=== PATIENT | female | born 1985 | race Caucasian/White ===

== ENCOUNTER 2025-08-03 05:34 | Emergency (ER) | payer OTHER ==
[~2025-08-03] VITALS: Ht 167.6 cm; Wt 81.6 kg
--- NOTE | 2025-08-03 06:01 | ERN ---
General Chief Complaint: Anxiety/Panic Attack Stated Complaint: ANXIETY Time Seen by MD: 05:38 History of Present Illness Initial Comments 40F BIB EMS from home for "anxiety." Patient is very talkative, tangential. Poor historian. She says that she feels anxious. No pain. No systemic illness. Patient reports that she has not been sleeping. She is disheveled. Denies SI/HI. Denies auditory or visual hallucinations. She denies hx of bipolar or schizophrenia. She reports occasional drug use and alcohol use. On initial exam, patient appears manic. No signs of trauma or distress. EMS reports stable VS. Allergies: Coded Allergies: epinephrine (Unverified Allergy, Unknown, 08/03/25) Past Medical History Past Medical History: Anxiety, Arthritis, Depression Past Surgical History: None ROS Dictation Difficult to obtain due to patient being a poor historian, tangential in thought the flight of ideas. She denies any pain, fevers, headache, nausea or vomiting. Physical Exam Physical Exam Dictation VITAL SIGNS: Reviewed. GENERAL APPEARANCE: Alert, oriented x3, no acute distress, thin, disheveled HEAD AND FACE: Non-traumatic. EYES: PERRL, pink conjunctivas, eyelid no trauma, anterior chamber clear. EARS: Pinnas intact and no signs of trauma or erythema. Ear canals clear and no discharge. TMs no erythema. NOSE: No discharge, no bleeding. OROPHARYNX: Mouth normal, teeth no caries, tongue pink. Pharynx clear, no erythema. Tonsils no exudates, no abscesses noted. Mucous membrane moist. NECK: Supple, non-tender, no thyromegaly, no masses, no JVD, no bruits. BREAST: Deferred. CHEST: No tenderness, no crepitus, no paradoxical movement, no retractions. LUNGS: Clear, well-ventilated, symmetric, no rales, no wheezing, no rhonchi, no stridor, good breath sounds bilaterally. HEART: Regular rate, regular rhythm, no murmur, no gallops. VASCULAR: No peripheral edema. ABDOMEN: Soft, positive bowel sounds, nondistended, no guarding, nontender, no rebound, no masses no hepatomegaly, no splenomegaly, no Russell's sign, no h ernias. RECTAL: Deferred. GENITAL: Deferred. NEUROLOGICAL: Normal speech, gross motor function intact, gross sensory functi on intact. Tangential speech, pressured, flight of ideas. MUSCULOSKELETAL: Neck nontender, full range of motion, back nontender, full range of motion. EXTREMITIES: Nontender, full range of motion. SKIN: Color pink, dry, no turgor, no rash, no lacerations, no abrasions, no contusions. LYMPHATICS: Deferred. Results Laboratory and Microbiology Lab and Micro Result Laboratory Tests Test 08/03/25 05:58 08/03/25 06:10 08/03/25 10:32 White Blood Count 7.6 K/uL (4.8-10.8) Red Blood Count 3.13 MIL/uL (4.00-5.50) L Hemoglobin 10.1 g/dL (12.0-16.0) L Hematocrit 29.4 % (36-48) L Mean Corpuscular Volume 93.9 fL (79-99) Mean Corpuscular Hemoglobin 32.3 pg (27.0-33.0) Mean Corpuscular Hemoglobin Concent 34.4 g/dL (32.0-36.0) Red Cell Distribution Width 14.0 % (11.0-15.5) Platelet Count 258 K/uL (130-400) Mean Platelet Volume 9.4 fL (7.5-10.5) Immature Granulocyte % (Auto) 0.3 % (0-1) Neutrophils (%) (Auto) 55.7 % (40.0-77.0) Lymphocytes (%) (Auto) 28.0 % (21.0-51.0) Monocytes (%) (Auto) 13.0 % (3.0-13.0) Eosinophils (%) (Auto) 1.8 % (0.0-8.0) Basophils (%) (Auto) 1.2 % (0.0-5.0) Neutrophils # (Auto) 4.3 K/uL (1.8-7.7) Lymphocytes # (Auto) 2.1 K/uL (1.0-4.8) Monocytes # (Auto) 1.0 K/uL (0.1-1.0) Eosinophils # (Auto) 0.14 K/uL (0.00-0.70) Basophils # (Auto) 0.09 K/uL (0.00-0.20) Absolute Immature Granulocyte (auto 0.02 K/uL (0-1) Nucleated Red Blood Cells 0.0 % (0.0-0.19) Sodium Level 140 mmol/L (136-145) Potassium Level 2.1 mmol/L (3.5-5.1) *L 2.3 mmol/L (3.5-5.1) *L Chloride Level 93 mmol/L (101-111) L Carbon Dioxide Level 39 mmol/L (21-32) H Blood Urea Nitrogen 12 mg/dL (7-18) Creatinine 0.8 mg/dL (0.5-1.0) Glomerular Filtration Rate Calc 94 mL/min (>90) Random Glucose 89 mg/dL (70-105) Total Calcium 9.2 mg/dL (8.5-10.1) Total Creatine Kinase 1569 U/L (21-232) *H 1583 U/L (21-232) *H Serum Test, Qualitative NEGATIVE (NEGATIVE) Salicylates Level < 2.8 mg/dL (2.8-20.0) L Acetaminophen Level 4 mcg/mL (10-30) L Serum Alcohol < 3 mg/dL (0-10) Urine Opiates Screen POSITIVE (NEGATIVE) H Urine Barbiturates Screen NEGATIVE (NEGATIVE) Urine Phencyclidine Screen NEGATIVE (NEGATIVE) Urine Amphetamines Screen NEGATIVE (NEGATIVE) Urine Benzodiazepines Screen NEGATIVE (NEGATIVE) Urine Cocaine Screen NEGATIVE (NEGATIVE) Urine Marijuana (THC) Screen POSITIVE (NEGATIVE) H MDM CC: Anxiety Historian: Patient provided some history, EMS provided much of the history due to the difficult history. Comorbidities: Patient denies Limitations by social determinants of health: None Differential diagnosis for lana, for recreational drug use, alcohol use, dehydration, electrolyte abnormality, other Vital signs: Stable, remained stable Labs are relatively unremarkable other than elevated CK of 1500. Given IV fluids. We will admit for the hospitalist for rhabdomyolysis. Hospitalist consulted ED Course Orders Procedure Category Date Status Time Cbc With Differential LAB 08/03/25 Complete 05:39 Alcohol, Blood LAB 08/03/25 Complete 05:39 Salicylate LAB 08/03/25 Complete 05:39 Acetaminophen LAB 08/03/25 Complete 05:39 Testing, LAB 08/03/25 Complete Serum Hcg 05:39 Creatine Kinase, Total LAB 08/03/25 Complete 05:39 Basic Metabolic Panel LAB 08/03/25 Complete 05:39 Drug Screen Urine LAB 08/03/25 Complete 05:39 Lactated Ringers PHA 08/03/25 Complete 1000ml (Lactated 06:00 Lactated Ringers PHA 08/03/25 Complete 1000ml (Lactated 07:30 Potassium Bicarb/Cit PHA 08/03/25 Complete Ac 25meq (K-Lyte Ta 07:30 Creatine Kinase, Total LAB 08/03/25 Complete 10:20 Potassium LAB 08/03/25 Complete 10:20 Acetaminophen 500mg PHA 08/03/25 Complete Tab (Tylenol 500mg T 10:30 Current Medications Medications (Trade) Dose Ordered Sig/Niharika Route PRN Reason Start Time Stop Time Status Last Admin Dose Admin Acetaminophen (TYLenol 500MG TAB) 500 mg ONCE ONCE PO 08/03/25 10:30 08/03/25 10:31 DC 08/03/25 10:31 Lactated Ringer's 1,000 ml @ 0 mls/hr ONCE ONCE IV 08/03/25 06:00 08/03/25 06:01 DC 08/03/25 06:03 Lactated Ringer's 1,000 ml @ 125 mls/hr Q8H ONCE IV 08/03/25 07:30 08/03/25 12:35 DC 08/03/25 07:39 Potassium Bicarbonate (K-Lyte Tablet Eff 25 Meq Tablet.eff) 50 meq ONCE ONCE PO 08/03/25 07:30 08/03/25 07:31 DC 08/03/25 07:39 Vital Signs Date Time Temp Pulse Resp B/P (MAP) Pulse Ox O2 Delivery O2 Flow Rate FiO2 08/03/25 08:15 98.2 80 20 147/62 100 Room Air* 0 21 08/03/25 05:37 98.1 95 20 158/87 99 Room Air 0 DX & DISP Disposition: Inpatient Departure Impression: Primary Impression: Rhabdomyolysis Condition: Stable HAJA COLON DO Aug 03, 2025 06:01 VICTOR HUGO SUMNER MD Aug 03, 2025 11:42
[2025-08-03] MEDS: LACTATED RINGERS 1000ML 1,000 ML IV ONE ×2 (06:03→07:39)
[2025-08-03 06:23] LABS: IMMATURE GRANULOCYTE ABSOLUTE 0.02 K/uL (0-1); NUCLEATED RED BLOOD CELLS 0.0 % (0.0-0.19); PLATELET COUNT (AUTO) 258 K/uL (130-400); RED BLOOD CELL COUNT(AUTO) 3.13 MIL/uL (4.00-5.50); RED CELL DISTRIBUTION WIDTH 14.0 % (11.0-15.5); WHITE BLOOD COUNT (AUTO) 7.6 K/uL (4.8-10.8)
[2025-08-03 06:32] LABS: AMPHET/METH SCREEN,URINE NEGATIVE (NEGATIVE); BARBITURATE SCREEN, URINE NEGATIVE (NEGATIVE); CANNABINOID SCREEN,URINE POSITIVE (NEGATIVE); COCAINE SCREEN,URINE NEGATIVE (NEGATIVE)
[2025-08-03 06:56] LABS: ALCOHOL, BLOOD < 3 mg/dL (0-10)
[2025-08-03 07:10] LABS: CREATININE 0.8 mg/dL (0.5-1.0); GLOMERULAR FILTR. RATE CALC 94 mL/min (>90); GLUCOSE,RANDOM 89 mg/dL (70-105); SODIUM SERUM 140 mmol/L (136-145); UREA NITROGEN, BLOOD 12 mg/dL (7-18)
[2025-08-03 07:11] LABS: CREATINE KINASE, TOTAL 1569 U/L (21-232)
[2025-08-03 08:15] VITALS: BP 147/62; PULSE 80; RESP 20; TEMP 98.3; O2SAT 100
[2025-08-03 11:31] LABS: CREATINE KINASE, TOTAL 1583.0 U/L (21-232)
--- NOTE | 2025-08-03 12:23 | NUR ---
AMA PATIENT LEFT AMA UNDER DR SUMNER, I DC'D PATIENTS IV WITH CATH STILL INTACT AND APPLIED 2X2 GAUZE WITH COBAN I EXPLAINED TO PATIENT TO FOLLOW UP WITH PCP AND RISKS OF LEAVING AMA PATIENT AMBULATED OUT OF ED, NO COMPLICATIONS
--- NOTE | 2025-08-03 13:47 | PN ---
[facility] PROGRESS NOTE Date of Service: Aug 03, 2025 Time of Service: 11:50 AM Brief progress note I was requested by ER to admit this patient. Pt declined to be interviewed. I explained to the patient the reason behind admission including hypokalemia and rhabdomyolysis. Patient stated she has had previous history of hypokalemia in the past and has been worked up before. She currently declined to be admitted and wants to go home. I patient to talk to ER physician. I spoke to Dr Bray with ER who will re evaluate patient. Bolivar Spangler MD REVIEW OF SYSTEMS UNABLE TO PERFORM PHYSICAL EXAM unable to perform Vital Signs (last 8hr) Date Time Temp Pulse Resp B/P (MAP) Pulse Ox O2 Delivery O2 Flow Rate FiO2 08/03/25 08:15 98.2 80 20 147/62 100 Room Air* 0 21 LABS: Laboratory: Test 08/03/25 10:32 08/03/25 06:10 08/03/25 05:58 Range/Units Potassium Level 2.3 *L 3.5-5.1 mmol/L Total Creatine Kinase 1583 *H 21-232 U/L Urine Opiates Screen POSITIVE H NEGATIVE Urine Barbiturates Screen NEGATIVE NEGATIVE Urine Phencyclidine Screen NEGATIVE NEGATIVE Urine Amphetamines Screen NEGATIVE NEGATIVE Urine Benzodiazepines Screen NEGATIVE NEGATIVE Urine Cocaine Screen NEGATIVE NEGATIVE Urine Marijuana (THC) Screen POSITIVE H NEGATIVE White Blood Count 7.6 4.8-10.8 K/uL Red Blood Count 3.13 L 4.00-5.50 MIL/uL Hemoglobin 10.1 L 12.0-16.0 g/dL Hematocrit 29.4 L 36-48 % Mean Corpuscular Volume 93.9 79-99 fL Mean Corpuscular Hemoglobin 32.3 27.0-33.0 pg Mean Corpuscular Hemoglobin Concent 34.4 32.0-36.0 g/dL Red Cell Distribution Width 14.0 11.0-15.5 % Platelet Count 258 130-400 K/uL Mean Platelet Volume 9.4 7.5-10.5 fL Immature Granulocyte % (Auto) 0.3 0-1 % Neutrophils (%) (Auto) 55.7 40.0-77.0 % Lymphocytes (%) (Auto) 28.0 21.0-51.0 % Monocytes (%) (Auto) 13.0 3.0-13.0 % Eosinophils (%) (Auto) 1.8 0.0-8.0 % Basophils (%) (Auto) 1.2 0.0-5.0 % Neutrophils # (Auto) 4.3 1.8-7.7 K/uL Lymphocytes # (Auto) 2.1 1.0-4.8 K/uL Monocytes # (Auto) 1.0 0.1-1.0 K/uL Eosinophils # (Auto) 0.14 0.00-0.70 K/uL Basophils # (Auto) 0.09 0.00-0.20 K/uL Absolute Immature Granulocyte (auto 0.02 0-1 K/uL Nucleated Red Blood Cells 0.0 0.0-0.19 % Sodium Level 140 136-145 mmol/L Chloride Level 93 L 101-111 mmol/L Carbon Dioxide Level 39 H 21-32 mmol/L Blood Urea Nitrogen 12 7-18 mg/dL Creatinine 0.8 0.5-1.0 mg/dL Glomerular Filtration Rate Calc 94 >90 mL/min Random Glucose 89 70-105 mg/dL Total Calcium 9.2 8.5-10.1 mg/dL Serum Test, Qualitative NEGATIVE NEGATIVE Salicylates Level < 2.8 L 2.8-20.0 mg/dL Acetaminophen Level 4 L 10-30 mcg/mL Serum Alcohol < 3 0-10 mg/dL DIAGNOSTICS / RADIOLOGY: [ ] ASSESSMENT: Pt declined to be admitted to the hospital. Reason for admission was explained to the patient but she declined to be admitted and declined further history. I have requested Dr bray to re evaluate patient. Hospitalist service will be available to admit patient if she agrees to be admitted. BOLIVAR Mathew MD, MD Aug 03, 2025 13:47
== END 2025-08-03 12:17 | disposition left against medical advice (07) ==
LOC: EDH 05:34
DX: M62.82 Rhabdomyolysis (principal); M19.90 Unspecified osteoarthritis, unspecified site; F32.A Depression, unspecified; F41.9 Anxiety disorder, unspecified
CPT/HCPCS: 99283; 96360; 96361; 82550 ×2; 80048; 80305; 84703; 85025; 36415; 84132; G0481; J7120 ×2